=== PATIENT | male | born 1940 | race Caucasian/White ===

== ENCOUNTER 2018-09-15 10:15 | Emergency (ER) | payer OTHER ==
[~2018-09-15] VITALS: Ht 177.8 cm; Wt 87.1 kg
--- NOTE | ~2018-09-15 | EKG ---
[address] [place] [address] ELECTROCARDIOGRAM REPORT Name: NEEL VALENCIA Room #: MARIE Bustos#: [id number] Admission: 09/15/18 Attend Phys: Discharge: 09/15/18 Date of : 36 Report #: [id number] THIS REPORT FOR: //name// [facility] ED Test Date: 2018-09-15 Test Time: 10:58:27 Pat Name: NEEL VALENCIA Department: Room: Gender: Transplant Registered Nurse: JUDI : 1940 Requested By: Noman Abrams Order Number: [id number] MD: Reed Silva Measurements Intervals [place] Rate: 68 P: 44 [place]: 198 QRS: 43 QRSD: 155 T: -1 QT: 474 QTc: 505 Interpretive Statements Sinus rhythm Right bundle branch block No previous ECG available for comparison Electronically Signed On 09-16-2018 8:20:01 CDT by Reed Silva [email or web address] <ELECTRONICALLY SIGNED> By: Reed Silva MD, [facility] 09/16/18 0820 1058 1058 Reed Silva MD, FACC /EPI
[2018-09-15 11:36] LABS: ANION GAP 6 mmol/L (7-16); BUN 15 mg/dL (7-18); CALCIUM 9.3 mg/dL (8.5-10.1); CHLORIDE 107 mmol/L (98-107); CO2 29 mmol/L (21-32); GLUCOSE 105 mg/dL (74-106); POTASSIUM 3.9 mmol/L (3.5-5.1); SODIUM 142 mmol/L (136-145); TROPONIN-I <0.06 ng/mL (<0.06)
[2018-09-15 11:47] LABS: ABSOLUTE NEUTROPHILS 5.3 thou/uL (1.4-8.2); BASOPHILS 0.7 % (0.0-2.0); EOSINOPHILS 0.7 % (0.0-3.0); HEMATOCRIT 40.6 % (42.0-52.0); HEMOGLOBIN 13.7 gm/dL (14.0-18.0); LYMPHOCYTES 10.4 % (24.0-44.0); MCH 31.5 pg (26.0-34.0); MCHC 33.8 g/dL (28.0-37.0); MONOCYTES 8.8 % (1.0-8.0); PLATELET COUNT 182 thou/uL (150-400); POLYS 79.4 % (36.0-66.0); RBC 4.36 mil/uL (4.50-6.00); RDW 12.3 % (10.5-14.5); WBC 6.7 thou/uL (4.0-11.0)
[2018-09-15 14:06] VITALS: BP 136/78
== END 2018-09-15 14:06 | disposition home or self-care (01) ==
LOC: ER 10:15
PROVIDERS: Emergency Medicine
DX: S61.411A Laceration without foreign body of right hand, initial encounter (principal); R55 Syncope and collapse; Z90.49 Acquired absence of other specified parts of digestive tract; W01.198A Fall on same level from slipping, tripping and stumbling with subsequent striking against other object, initial encounter; Y93.01 Activity, walking, marching and hiking; Y92.89 Other specified places as the place of occurrence of the external cause; Y99.8 Other external cause status